=== PATIENT | male | born 1945 | race Caucasian/White ===

== ENCOUNTER 2018-10-17 10:25 | Day surgery (SDC) | payer MEDICARE ==
[~2018-10-17 10:25] MED LIST: Buffered Lidocaine 1% SYRIN* 1 ML/SYRINGE INTRADERM ONE; Dexamethasone IV* 4 MG/ML 1 ML (4 MG) IV SLOW PU ONE; Famotidine IV* 10 MG/ML 2 ML (20 mg) IV ONE; Lactated Ringers 1000 ML Bag* 1,000 ML IV SCH
[2018-10-17] MEDS ORDERED: Dexamethasone IV* 4 MG/ML 1 ML (4 MG) ONE (10:45)
[2018-10-17] MEDS ORDERED: ceFAZolin 2 GM PREMIX in ORs 2 GM/50 ML BAG IVPB ONE (10:45)
[2018-10-17] MEDS ORDERED: Famotidine IV* 10 MG/ML 2 ML (20 mg) ONE (10:45)
[2018-10-17] MEDS ORDERED: Ketorolac INJ* 30 MG/ML 1 ML VIAL ONE (10:45)
[2018-10-17] MEDS ORDERED: fentaNYL* 50 MCG/ML 2 ML VIAL (100 MCG VIAL) ONE ×2 (11:20→12:45)
[2018-10-17] MEDS ORDERED: Propofol* 10 MG/ML 20 ML BTL ONE (11:20)
[2018-10-17] MEDS ORDERED: Ondansetron INJ* 2 MG/ML VIAL ONE (11:20)
[2018-10-17] MEDS ORDERED: Midazolam* 1 MG/ML 5 ML VIAL (5 MG) ONE (11:20)
[2018-10-17] MEDS ORDERED: Bupivacaine 0.5% W/EPI SDV* 30 ML VIAL ONE (11:44)
[2018-10-17] MEDS ORDERED: Lidocaine 1% INJ* 10 MG/ML 30 ML SDV ONE (11:44)
[2018-10-17] MEDS ORDERED: Naloxone* 0.4 MG/ML 1 ML VIAL IV PRN (13:37)
[2018-10-17 15:21] VITALS: BP 131/94
--- NOTE | 2018-10-17 16:33 | OP ---
CC: Dr. Saira Quezada * DATE OF OPERATION: 10/17/18 - [facility] DATE OF : 43 SURGEON: Calixto Ramos MD GROUNDS/MAINTENANCE SPECIALIST: None. ANESTHESIA: LMAC anesthesia. ANESTHESIOLOGIST: Dr. Moncada. PRE-OP DIAGNOSIS: Bilateral inguinal hernias. POST-OP DIAGNOSIS: Bilateral inguinal hernias. OPERATIVE PROCEDURE: Open repair of bilateral inguinal hernias with mesh. DESCRIPTION OF PROCEDURE: The patient was supine on the operating table. After adequate intravenous sedation, compression stockings, Charlene Hugger warmer, and intravenous antibiotics, the groins were clipped and prepped with antiseptic , draped in a sterile fashion. Local infiltrative anesthesia was administered. The left side was addressed first. Dissection was carried down through the external oblique, which was opened in the direction of its fibers and cord structures were encircled with the Rachel drain tented upward. There was a large indirect space hernia. The hernia sac was dissected back and reduced, and a cone mesh plug was placed into the internal ring. A second piece of mesh was placed over the inguinal floor, sutured at the tubercle, tails were split, brought around the cord structures, and tacked down laterally. External oblique was closed over top with 2- 0 Vicryl, Tri's with 3-0 Vicryl, skin with 4-0 Prolene. Attention was turned to the right side, where identical incision was created. In this case, there was a small indirect space hernia and a moderately large direct space hernia. A cone mesh plug was placed into the internal ring after dissecting free and reducing the hernia sac. This was sutured with 2-0 Polysorb. A second piece of mesh, a Prolene hernia system PHSE patch was put into place in the preperitoneal space after opening the inguinal floor. The preperitoneal portion was sutured at the Luis F ligament and up under the transverse abdominis. The second piece of mesh was over top of the inguinal floor, sutured at the tubercle, at the inguinal ligament, and at the transverse abdominis. The tails were split, brought around the cord structures, and tacked down laterally. External oblique was closed over top with 2- 0 Vicryl, Tri's with 3-0 Vicryl, skin with 4-0 Prolene followed by sterile dressing. He tolerated the procedure well, was awakened, and brought to recovery in good condition. There were no complications. No drains. No pathologic specimens. Sponge and instrument counts were correct. Estimated blood loss 20 mL. [id number]/[facility] #: [id number] [facility]ITAL[facility]res
== END 2018-10-17 15:27 | disposition home or self-care (01) ==
LOC: OR 10:25
PROVIDERS: ATTEND Surgery
DX: K40.20 Bilateral inguinal hernia, without obstruction or gangrene, not specified as recurrent (principal); I10 Essential (primary) hypertension; E78.00 Pure hypercholesterolemia, unspecified; N40.0 Benign prostatic hyperplasia without lower urinary tract symptoms; M19.071 Primary osteoarthritis, right ankle and foot; M19.072 Primary osteoarthritis, left ankle and foot; Z87.891 Personal history of nicotine dependence
CPT/HCPCS: C1781; J0690; J1100; J1885; J2250; J2405; J2704; J3010